=== PATIENT | female | born 1965 | race Caucasian/White ===

== ENCOUNTER 2018-12-03 10:26 | Outpatient (CLI) | payer OTHER | END 2018-12-03 10:29 | disposition home or self-care (01) | LOC: SONOGRAMA 10:26 → MAMO-SONO 10:45 | DX: M54.2 Cervicalgia (principal); M25.512 Pain in left shoulder ==

== ENCOUNTER 2020-05-19 12:36 | Outpatient (CLI) | payer OTHER | END 2020-05-19 14:06 | disposition home or self-care (01) | LOC: SONOGRAMA 12:36 | PROVIDERS: ATTEND Pathology Anatomic Pathology & Clinical Pathology | DX: E04.2 Nontoxic multinodular goiter (principal) ==

== ENCOUNTER 2021-05-10 09:08 | Outpatient (CLI) | payer OTHER | END 2021-05-10 09:24 | disposition home or self-care (01) | LOC: MAMO-SONO 09:08 | PROVIDERS: ATTEND Obstetrics & Gynecology Gynecology | DX: R92.1 Mammographic calcification found on diagnostic imaging of breast (principal); Z12.31 Encounter for screening mammogram for malignant neoplasm of breast; Z80.3 Family history of malignant neoplasm of breast; Z78.0 Asymptomatic menopausal state ==

== ENCOUNTER → 2022-01-22 | Outpatient (CLI) | payer OTHER | END | disposition home or self-care (01) | LOC: RAD 10:21 | PROVIDERS: ATTEND Specialist | DX: Z01.818 Encounter for other preprocedural examination (principal) ==

== ENCOUNTER → 2022-11-27 | Outpatient (CLI) | payer OTHER | END | disposition home or self-care (01) | LOC: RAD 16:03 | DX: M15.1 Heberden's nodes (with arthropathy) (principal) ==

== ENCOUNTER 2023-04-30 15:51 | Outpatient (CLI) | payer OTHER | END 2023-04-30 16:06 | disposition home or self-care (01) | LOC: RAD 15:51 | DX: M54.51 Vertebrogenic low back pain (principal); M54.6 Pain in thoracic spine; R29.3 Abnormal posture; M25.562 Pain in left knee ==